=== PATIENT | female | born 1950 | race Caucasian/White ===

== ENCOUNTER → 2016-12-21 | Outpatient (CLI) | payer BC ==
[~2016-12-21] MED LIST: ASPI81TA28 PO; ATOR-24 PO; CALC600T9 PO; CLB/200 PO; MOME6000 NAE; MULT-506 PO; OMEG10007 PO; PANT40TA PO; RXC5 PO; TRAM-10 PO
== END | disposition home or self-care (01) ==
LOC: C.LABMFLN 15:53
PROVIDERS: ATTEND Family Medicine
DX: M54.9 Dorsalgia, unspecified (principal)

== ENCOUNTER → 2017-01-01 | Outpatient (CLI) | payer BC ==
--- NOTE | 2017-01-01 14:30 | DIAGNOSTIC IMAGING REPORT ---
MRI OF THE LUMBAR SPINE WITHOUT IV CONTRAST CLINICAL HISTORY: Low back pain with bilateral lower extremity numbness. Foot drop. COMPARISON STUDY: Radiographs of the lumbar spine dated 05/23/2016. TECHNIQUE: MRI of the lumbar spine is performed utilizing various T1 and T2-weighted sequences in the axial and sagittal planes. IV contrast was not administered for this examination. The examination is significantly degraded by open MRI technique. FINDINGS: Lumbar spine: Vertebral body height is maintained throughout the lumbar spine. There is 7 mm of anterolisthesis at L4-L5. Alignment is otherwise preserved. There is advanced chronic degenerative endplate change seen at L5-S1. Tiny anterior osteophytes are seen throughout. A large hemangioma is noted in the body of L2. Smaller hemangiomas are identified in the bodies of T12 and L3. Mild endplate edema is seen at T11-T12. The transverse and spinous processes are intact as visualized. There is no evidence of spondylolysis. Intervertebral discs: There is degenerative disc desiccation seen throughout the lumbar spine. Advanced loss of height is noted at L5-S1. Moderate loss of height is seen at L4-L5. Only mild loss of height is seen at the remaining lumbar levels. Spinal cord: The visualized spinal cord is normal in morphology and signal intensity. The conus medullaris terminates at the level of L2. The nerve roots of the cauda equina are normal in morphology. L1-L2: Unremarkable. L2-L3: There is a posterior disc bulge. There is only minimal acquired compromise of the central canal at this level. The minimum AP diameter measures 10 mm. There is minimal bilateral subarticular stenosis. Facet arthropathy is of no consequence. The neural foramina are patent. L3-L4: There is minimal posterior disc bulge. The central canal and neural foramina are patent. Facet arthropathy is of no consequence. L4-L5: There is a posterior disc herniation with annular fissure. A superiorly extruded fragment eccentric to the left is located posterior to the L4 vertebral body and measures up to 13 mm. In conjunction with anterolisthesis this causes moderate to severe acquired compromise of the central canal at this level with a minimum AP diameter of 5 mm. The disc herniation impinges on the transiting bilateral L5 and the exiting bilateral L4 nerve roots. Facet joint effusions are noted. Facet arthropathy causes minimal bilateral neural foraminal stenosis. L5-S1: There is a small posterior disc bulge with annular fissure. There is only minimal acquired compromise of the central canal at this level. The minimum AP diameter measures 8.5 mm. There is mild bilateral subarticular stenosis. There may be impingement of exiting bilateral L5 nerve roots. Sacrum: Visualized sacrum is normal in morphology and signal intensity. Soft tissues: There is mild fatty atrophy of the paraspinous musculature. There is cortical atrophy of the kidneys. Bilateral renal cysts are observed. A tiny cystic focus is seen just to the right of the L5 spinous process on axial image #26 and measures up to 9 mm. This is of doubtful significance. IMPRESSION: 1. There is a disc herniation at L4-L5 with a superiorly extruded fragment. There is moderate to severe central canal stenosis at this level. 2. Milder spondylotic change at additional levels. See discussion for detailed level by level analysis. 3. No destructive bony process is seen. 4. There is grade 1 anterolisthesis at L4-L5. 5. Degenerative disc disease with chronic endplate change as above. Dictated: 01/01/2017 1:37 PM Transcribed: 01/01/2017 2:29 PM [facility] Electronically signed by: Roberto Moreland M.D. 01/01/2017 2:35 PM Dictated Date/Time: 01/01/2017 1:37 PM
== END | disposition home or self-care (01) ==
LOC: C.OPENMRI 12:13
PROVIDERS: ATTEND Family Medicine
DX: M21.379 Foot drop, unspecified foot (principal); M54.5 Low back pain

== ENCOUNTER → 2017-02-14 | Outpatient (CLI) | payer BC, OTHER ==
[2017-02-14 13:41] LABS: URINE APPEARANCE CLEAR (CLEAR); URINE BILIRUBIN NEG (NEG); URINE COLOR YELLOW; URINE EPITHELIAL CELL AUTO 0-5 /lpf (0-5); URINE NITRITE NEG (NEG); URINE PH 5.5 (4.5-7.5); URINE SPECIFIC GRAVITY 1.014 (1.000-1.030); UROBILINOGEN NEG (NEG)
[2017-02-14 13:48] LABS: MANUAL MICROSCOPIC REQUIRED? NO; REVIEW REQ? NO
--- NOTE | 2017-02-20 11:06 | CODING QUERY MEDICAL NECESSITY ---
CQSUPPORTING DIAGNOSIS NEEDED A supporting diagnosis is required for the test/procedure performed on this patient in order for us to be reimbursed by the patient's insurance. Please provide a supporting diagnosis for the following test/procedure listed below next to the test name along with your signature. *If there is no additional diagnosis for this patient that would support the following test/procedure please document that below next to the test/procedure. Test(s)/Procedure(s) that require a supporting diagnosis: KYLE 02/14/17 URINE CULTURE TEST Provider Signature: Date: Thank you Mandy Gonzalez Health Information Management Once completed, please kindly fax back to [phone] For questions please call [phone]
== END | disposition home or self-care (01) ==
LOC: C.LABMFLN 07:30
PROVIDERS: ATTEND Orthopaedic Surgery Orthopaedic Surgery of the Spine
DX: Z01.812 Encounter for preprocedural laboratory examination (principal)

== ENCOUNTER 2017-02-26 10:27 | Inpatient (IN) | payer BC, OTHER ==
[2017-02-07 11:50] VITALS: BMI 27.0
--- NOTE | 2017-02-07 12:18 | PAT Medication Instructions ---
Service Date Feb 07, 2017. Current Home Medication List Aspirin (Aspirin Ec), 81 MG PO QAM Atorvastatin (Lipitor), 40 MG PO QPM Calcium Carbonate-Vitamin D (Calcium + D), 1 TAB PO QAM Celecoxib (CeleBREX), 200 MG PO QAM Fish Oil ([place]-3), 3 CAP PO QAM Mometasone Furoate (Nasal) (Mometasone Furoate), 2 SPRAYS MAX Multivitamin (Multivitamin), 1 TAB PO QAM Pantoprazole (Protonix), 40 MG PO QAM Tramadol (Ultram), 50 MG PO QID PRN for consumer recruiter Instructions For Your Scheduled Surgery - Hold the following medications 1 week prior to surgery per surgeon's instructions: Fish Oil ([place]-3), 3 CAP PO QAM Celecoxib (CeleBREX), 200 MG PO QAM Aspirin (Aspirin Ec), 81 MG PO QAM - Hold the following medications the morning of surgery: Multivitamin (Multivitamin), 1 TAB PO QAM Calcium Carbonate-Vitamin D (Calcium + D), 1 TAB PO QAM - Take the following medications the morning of surgery with a sip of water OTHERWISE NOTHING TO EAT OR DRINK AFTER MIDNIGHT: Pantoprazole (Protonix), 40 MG PO QAM Mometasone Furoate (Nasal) (Mometasone Furoate), 2 SPRAYS MAX Tramadol (Ultram), 50 MG PO QID PRN (may take if needed up to 4 hours prior to surgery) - Take the following medications as scheduled the night before surgery: Atorvastatin (Lipitor), 40 MG PO QPM Tramadol (Ultram), 50 MG PO QID PRN If you have any questions please call us at [phone] or [phone] or [phone]
--- NOTE | 2017-02-07 13:03 | DIAGNOSTIC IMAGING REPORT ---
TWO VIEW CHEST CLINICAL HISTORY: Preoperative examination. FINDINGS: PA and lateral chest radiographs obtained. No prior studies are available for comparison at the time of dictation. The cardiomediastinal silhouette is unremarkable. There is atherosclerotic calcification of the thoracic aorta. The lungs and pleural spaces are clear. There is no pneumothorax. The skeletal structures are osteopenic. The bony thorax appears intact. IMPRESSION: No active disease in the chest. Electronically signed by: Roberto Moreland M.D. 02/07/2017 1:01 PM Dictated Date/Time: 02/07/2017 1:01 PM
[2017-02-07 13:24] LABS: BASO % 0.2 %; BASO ABS # 0.01 K/uL (0-0.2); COMPLETE YES; EOS % 9.5 %; HEMATOCRIT 38.8 % (37-47); IG% 0.2 %; LYMPH % 36.2 %; LYMPH ABS # 2.24 K/uL (1.2-3.4); MEAN CELL VOLUME 98.2 fL (80-100); MEAN CORPUSCULAR HEMOGLOBIN 32.9 pg (25-34); MEAN CORPUSCULAR HGB CONC 33.5 g/dl (32-36); MEAN PLATELET VOLUME 10.6 fL (7.4-10.4); MONO % 7.9 %; PLATELET COUNT 220 K/uL (130-400); RED BLOOD COUNT 3.95 M/uL (4.2-5.4); WHITE BLOOD COUNT 6.18 K/uL (4.8-10.8)
[2017-02-07 13:29] LABS: BUN/CREATININE RATIO 16.8 (10-20); CALCIUM 10.4 mg/dl (8.5-10.1); CREATININE 0.97 mg/dl (0.60-1.20); POTASSIUM 4.1 mmol/L (3.5-5.1)
[2017-02-26] VITALS (7 sets, daily range): BP systolic 103–115; BP diastolic 60–70; PULSE 55–72; TEMP 36.3–36.9; O2SAT 96–100; Ht 162.6 cm; Wt 73.3 kg
[~2017-02-26] VITALS: Ht 162.6 cm; Wt 73.3 kg
[~2017-02-26 10:27] MED LIST changes: +ATROPINE SULFATE 0.1 MG/ML 5ML SYR IV PRN; +CEFAZOLIN 1000MG/55 ML D5W IV SCH; +EpHEDrine SULFATE INJ 50 MG/ML AMP IV PRN; +FENTANYL CITRATE INJ 50 MCG/1 ML 2 ML VIAL IV PRN; +HYDROmorphone INJ 1 MG/ML SYR IV PRN; +LACTATED RINGER'S 1000ML 1,000 ML IV SCH; +ONDANSETRON INJ 2 MG/ML 2 ML VIAL IV PRN; -RXC5 PO
--- NOTE | 2017-02-26 11:11 | History & Physical Bridge Note ---
H&P Re-Evaluation Bridge Note: I have examined the patient, reviewed the History & Physical and in the interval since the performance of the History & Physical I have noted the following changes of clinical significance: No changes noted
--- NOTE | 2017-02-26 11:12 | History and Physical ---
History & Physical Date Feb 26, 2017. Chief Complaint Back and leg pain History of Present Illness The patient is a 66 year old female with complaints of back and leg pain Additional History Hepatic Disease: No Endocrine Disorder: No Kidney Disease: No Hypertension: No Heart Disease: No Bleeding Tendencies: No Infectious Diseases: No Allergies Coded Allergies: No Known Allergies (Unverified , 02/26/17) Home Medications Scheduled Aspirin (Aspirin Ec), 81 MG PO QAM Atorvastatin (Lipitor), 40 MG PO QPM Calcium Carbonate-Vitamin D (Calcium + D), 1 TAB PO QAM Celecoxib (CeleBREX), 200 MG PO QAM Fish Oil (Balm-3), 3 CAP PO QAM Multivitamin (Multivitamin), 1 TAB PO QAM Pantoprazole (Protonix), 40 MG PO QAM Scheduled PRN Tramadol (Ultram), 50 MG PO QID PRN for RN Miscellaneous Medications Mometasone Furoate (Nasal) (Mometasone Furoate), 2 SPRAYS MAX Physical Examination Skin: warm/dry, no rash Eyes: normal inspection, EOMI, sclerae normal ENT: normal ENT inspection, pharynx normal Head: normocephalic, atraumatic Neck: supple, no adenopathy, trachea midline Respiratory/Chest: lungs clear, normal breath sounds, no respiratory distress Cardiovascular: regular rate, rhythm, no edema, no murmur Abdomen / GI: normal bowel sounds, non tender Back: normal inspection Extremities: normal inspection, normal range of motion Neurologic/Psych: no motor/sensory deficits, alert, normal reflexes, oriented x 3 Diagnosis Lumbar spinal stenosis Plan of Treatment Lumbar decompression fusion L4 5 L5-S1
[2017-02-26] MEDS ORDERED: MIDAZOLAM HCL 1 MG/ML 2ML VIAL ONE (11:24)
[2017-02-26] MEDS ORDERED: FENTANYL CITRATE INJ 50 MCG/1 ML 2 ML VIAL ONE ×3 (11:24→13:39)
[2017-02-26] MEDS ORDERED: BUPIVACAINE/EPINEPHRINE 0.5% MPF 1:200,000 10 ML VIAL ONE (11:46)
[2017-02-26] MEDS ORDERED: SODIUM CHLORIDE 0.9% PF 50 ML VIAL ONE (11:47)
[2017-02-26] MEDS ORDERED: BACITRACIN 50000 UNIT VIAL ONE (11:47)
[2017-02-26] MEDS ORDERED: HYDROmorphone INJ 2 MG/ML SYR/VIAL ONE ×2 (12:34→14:13)
[2017-02-26] MEDS ORDERED: LIDOCAINE HCL 2% 2 ML VIAL (20MG/ML) ONE (12:36)
[2017-02-26] MEDS ORDERED: ONDANSETRON INJ 2 MG/ML 2 ML VIAL ONE ×2 (12:36→14:17)
[2017-02-26] MEDS ORDERED: PROPOFOL IV EMULSION 10 MG/ML 20 ML VIAL IV ONE (12:36)
[2017-02-26] MEDS ORDERED: DEXAMETHASONE SOD INJ 4 MG/ML VIAL ONE (12:36)
[2017-02-26] MEDS ORDERED: ROCURONIUM BROMIDE 10 MG/ML 5 ML VIAL IV ONE (12:36)
[2017-02-26] MEDS ORDERED: EpHEDrine SULFATE 50MG/5ML SYR ONE (14:17)
[2017-02-26] MEDS ORDERED: NEOSTIGMINE METHYLSULFATE 1 MG/ML 10ML VIAL ONE (14:17)
[2017-02-26] MEDS ORDERED: GLYCOPYRROLATE INJ 0.2 MG/ML VIAL ONE (14:17)
[2017-02-26] MEDS ORDERED: KETOROLAC TROMETHAMINE 30 MG/ML VIAL ONE (14:19)
[2017-02-26] MEDS ORDERED: FLOSEAL HEMOSTATIC MATRIX 10ML TOP ONE (14:27)
[2017-02-26] MEDS ORDERED: SODIUM CHLORIDE 0.9% 1000ML 1,000 ML IV SCH (14:32)
--- NOTE | 2017-02-26 14:40 | [facility] Operative Report ---
Operative Report Operative Date Feb 26, 2017. Pre-Operative Diagnosis Lumbar Spinal Stenosis Post-Operative Diagnosis Lumbar Spinal Stenosis Procedure(s) Performed #1 lumbar decompression medial facetectomies foraminotomies L3 4 L4 5 L5-S1. #2 posterior spinal fusion L4 5 L5-S1. #3 placement of posterior segmental instrumentation L4 5 L5-S1. #4 interbody fusion L4 5. #5 placement peek cage 12 x 22 mm at L4 5. 6 placement of locally harvested morcellized autograft posterior gutters. #7 placement infuse collagen sponge by mask graft the posterior gutters Clara bone graft in the interbody space. Surgeon Dr Bill Chaudhari Soiled Linen Distributor Surgeon(s) Sharon Otto Estimated Blood Loss 375ml Findings Spinal stenosis with herniated nucleus pulposus L4 5 Specimens None as per Surgeon Description of Procedure Patient was met with preoperatively case discussed all questions are dressed. After informed consent patient was taken back to the operative suite and after intubation placed in a prone position on the [place] table top Krishna frame. At this time the lumbar spines prepped and draped in the normal sterile fashion. Sharp dissection with the assistance of Bovie cautery was performed onto an exposing the lamina and transverse processes of L4-L5 sacral alar bilaterally. Obvious spondylolisthesis appreciated. From a caudal to cephalad fashion a complete laminectomy of L5 L4 partial laminectomy of L3 was performed addressing severe lateral recess and foraminal disease. I also performed discectomy addressing the free fragment at L4 5 that had migrated cephalad. This complete pedicle screws were placed in L4-L5 and S1 levels bilaterally with the assistance of fluoroscopy in the properly sized wing placed. Through a transforaminal port and left complete discectomy of L4 5 was performed and plate created subcortical bleeding bone and a 12 x 22 mm peek cage filled with Clara bone grafting tapped in position. The rods were then locked and final position bilaterally. The transverse processes of L4-L5 and the sacral alar burred to subcortical bleeding bone. Infuse collagen sponge mask graft locally harvested morcellized autograft placed in the posterior lateral gutters. 15 round JONATHAN drain inserted. Incision then closed with 1 Vicryl in the fascia 2-0 Vicryl subcutaneously and 4-0 Monocryl for final skin closure. Sterile dressings. Steri-Strips placed. Patient awakened taken to PACU stable condition. Please note Sharon Espinoza present throughout the entire procedure involved in patient positioning complex portions of the procedure and final skin closure. I attest to the content of the Intraoperative Record and any orders documented therein. Any exceptions are noted below.
--- NOTE | 2017-02-26 14:42 | DIAGNOSTIC IMAGING REPORT ---
Radiology LUMBAR SPINE 2 OR 3 VIEW CLINICAL HISTORY: 66 years-old Female presenting with L4-S1 DECOMPRESSION/FUSION. TECHNIQUE: 2 fluoroscopic spot image(s) obtained as part of an intraoperative procedure. COMPARISON: 05/23/2016. FINDINGS/IMPRESSION: Interval bilateral transpedicular screw and wing fixation of L4-S1 with interbody spacer at L4-5. Anatomic alignment grossly maintained. Please see surgical report for further details. Fluoroscopy dosage (mGy): Not available. Fluoroscopy time: 24 seconds. Number of fluoroscopic spot images: 2. Electronically signed by: Alexys Hurst M.D. 02/26/2017 2:40 PM Dictated Date/Time: 02/26/2017 2:39 PM
[2017-02-26] MEDS ORDERED: TRAMADOL HCL 50 MG TAB PO PRN (14:45)
[2017-02-26] MEDS ORDERED: MAGNESIUM HYDROXIDE SUSP 30 ML UDC PO PRN (14:45)
[2017-02-26] MEDS ORDERED: SOD PHOSPHATE/SOD BIPHOSPHATE ENEMA 132 ML BTL PR PRN (14:45)
[2017-02-26] MEDS ORDERED: DO NOT ADMINISTER FLU VACCINE PRN ×3 (14:45)
[2017-02-26] MEDS ORDERED: LORAZEPAM 0.5 MG TAB PO PRN (14:45)
[2017-02-26] MEDS ORDERED: METOCLOPRAMIDE HCL INJ 5 MG/ML 2 ML VIAL IV PRN (14:45)
[2017-02-26] MEDS ORDERED: hydrOXYzine HCL 25 MG TAB PO PRN (14:45)
[2017-02-26] MEDS ORDERED: BISACODYL 10 MG SUPP PR PRN (14:45)
[2017-02-26] MEDS ORDERED: ACETAMINOPHEN IV 100 ML IV PRN (14:45)
[2017-02-26] MEDS ORDERED: FAMOTIDINE 20 MG TAB PO PRN (14:45)
[2017-02-26] MEDS ORDERED: LORAZEPAM INJ 0.5 MG in SYRINGE 0 ML IV PRN (14:45)
[2017-02-26] MEDS ORDERED: ONDANSETRON INJ 2 MG/ML 2 ML VIAL IV PRN (14:45)
[2017-02-26] MEDS ORDERED: NALOXONE HCL 0.4 MG/1 ML VIAL/CARP IV PRN ×2 (14:45)
[2017-02-26] MEDS ORDERED: ACETAMINOPHEN 500 MG TAB PO PRN (14:45)
[2017-02-26] MEDS ORDERED: DO NOT ADMINISTER PNEUMOCOCCAL VACCINE PRN ×2 (14:45)
[2017-02-26] MEDS ORDERED: PROMETHAZINE HCL INJ 12.5 MG in SODIUM CHLORIDE 0.9% 50ML 50 ML IV PRN (14:45)
[2017-02-26] MEDS ORDERED: ALUMINUM/MAGNESIUM SUSP 30 ML UDC PO PRN (14:45)
[2017-02-26] MEDS: HYDROmorphone HCL 0.5MG/ML 50 ML CASSETTE IV PRN ×3 (15:02→23:13)
[2017-02-26] MEDS ORDERED: HYDROmorphone INJ 1 MG/ML SYR IV PRN (15:15)
--- NOTE | 2017-02-26 16:01 | Anesthesiology Progress Note ---
Anesthesia Post Op Note Date & Time Feb 26, 2017 at 16:00 Vital Signs Pain Intensity: 0 Vital Signs Past 12 Hours Date Time Temp Pulse Resp B/P (MAP) Pulse Ox O2 Delivery O2 Flow Rate FiO2 02/26/17 15:45 50 12 112/69 100 Nasal Cannula 4 02/26/17 15:35 36.2 51 12 121/55 100 Nasal Cannula 4 02/26/17 15:25 58 12 115/63 100 Nasal Cannula 4 02/26/17 15:15 62 12 118/64 100 Nasal Cannula 4 02/26/17 15:05 60 12 118/65 100 Oxymask 10 02/26/17 14:55 68 12 120/62 100 Oxymask 10 02/26/17 14:48 36.3 80 12 118/62 100 Oxymask 10 02/26/17 10:45 36.9 62 20 109/70 96 Room Air Notes Mental Status: alert / awake / arousable, participated in evaluation Pt Amnestic to Procedure: Yes Nausea / Vomiting: adequately controlled Pain: adequately controlled Airway Patency, RR, SpO2: stable & adequate BP & HR: stable & adequate Hydration State: stable & adequate Anesthetic Complications: no major complications apparent
[2017-02-26] MEDS: SODIUM CHLORIDE 0.9% 1000ML 1,000 ML IV SCH ×2 (16:55→20:17)
[2017-02-26] MEDS: CEFAZOLIN IV 2,000 MG in DEXTROSE 5% 50ML 50 ML IV SCH (20:17)
[2017-02-26] MEDS: DOCUSATE SODIUM/SENNA 50/8.6MG TAB PO SCH (20:18)
[2017-02-26] MEDS: DEXAMETHASONE INJ 6 MG in SYRINGE 0 ML IV SCH (20:18)
[2017-02-26] MEDS: ATORVASTATIN 40 MG TAB PO SCH (20:18)
[2017-02-27 03:25] VITALS: BP 100/57; PULSE 77; TEMP 36.8; O2SAT 96
[2017-02-27] MEDS: SODIUM CHLORIDE 0.9% 1000ML 1,000 ML IV SCH (03:37)
[2017-02-27] MEDS: CEFAZOLIN IV 2,000 MG in DEXTROSE 5% 50ML 50 ML IV SCH (03:59)
[2017-02-27] MEDS: DEXAMETHASONE INJ 6 MG in SYRINGE 0 ML IV SCH ×2 (03:59→12:15)
[2017-02-27 05:51] LABS: COMPLETE YES; HEMATOCRIT 30.4 % (37-47); IG% 0.2 %; LYMPH % 5.6 %; LYMPH ABS # 0.72 K/uL (1.2-3.4); MEAN CELL VOLUME 96.8 fL (80-100); MEAN CORPUSCULAR HEMOGLOBIN 32.8 pg (25-34); MEAN CORPUSCULAR HGB CONC 33.9 g/dl (32-36); MEAN PLATELET VOLUME 10.2 fL (7.4-10.4); MONO % 4.7 %; NEUT % 89.5 %; PLATELET COUNT 202 K/uL (130-400); RED BLOOD COUNT 3.14 M/uL (4.2-5.4); WHITE BLOOD COUNT 12.82 K/uL (4.8-10.8)
[2017-02-27] MEDS ORDERED: HYDROmorphone INJ 0.5 MG/0.5 ML SYR IV PRN (06:00)
[2017-02-27] MEDS ORDERED: HYDROmorphone INJ 1 MG/ML SYR IV PRN (06:00)
[2017-02-27] MEDS ORDERED: DC PCA ONE (06:00)
[2017-02-27] MEDS ORDERED: OXYCODONE HCL IR 5 MG TAB (IMMEDIATE RELEASE) PO PRN (06:00)
[2017-02-27] MEDS ORDERED: NURSING DECISION MEDICATION ORDER SCH (06:30)
[2017-02-27 06:38] LABS: BUN/CREATININE RATIO 14.6 (10-20); CALCIUM 8.2 mg/dl (8.5-10.1); CREATININE 0.67 mg/dl (0.60-1.20)
[2017-02-27 07:12] VITALS: BP 113/68; PULSE 73; TEMP 36.7; O2SAT 97
[2017-02-27] MEDS: ASPIRIN 81 MG ECTAB PO SCH (09:05)
[2017-02-27] MEDS: PANTOprazole SOD 40 MG TAB PO SCH (09:05)
[2017-02-27] MEDS ORDERED: NURSING VERBAL MED ORDER ONE (09:15)
[2017-02-27] MEDS ORDERED: COUGH DROP (SUGAR FREE) LOZ 24 LOZ/1 BOX PO PRN (10:15)
--- NOTE | 2017-02-27 10:19 | Clinical Documentation Query ---
Dr. HAILE EVELYN: CLINICAL DOCUMENTATION QUERY H&P states no past medical history. However, home medication list includes: Aspirin (Aspirin Ec), 81 MG PO QAM Atorvastatin (Lipitor), 40 MG PO QPM Calcium Carbonate-Vitamin D (Calcium + D), 1 TAB PO QAM Celecoxib (CeleBREX), 200 MG PO QAM Fish Oil ([place]-3), 3 CAP PO QAM Multivitamin (Multivitamin), 1 TAB PO QAM Pantoprazole (Protonix), 40 MG PO QAM As appropriate, consider capturing these clinical diagnoses as this imparts severity of illness and associated risk of mortality in the medical record. Thank you. In your clinical opinion is this patient being managed for: ( ) Age-related osteoporosis, osteoarthritis, hypercholesterolemia, GERD ( ) Other explanation of clinical findings (Please Explain) ( ) Unable to determine (Please Define) ( ) Need to Discuss ( ) Not Agree The medical record reflects the following clinical findings, treatment, and risk factors. Clinical Indicators: As above Treatment: As above Risk Factors: Age, gender Please clarify and document your clinical opinion in the progress notes and discharge summary. Terms such as "probable", "suspected", "likely", "questionable", "possible", or "still to be ruled out" are acceptable. IF IN AGREEMENT, YOU MUST DOCUMENT ABOVE DIAGNOSTIC STATEMENT IN DAILY PROGRESS NOTES AND DISCHARGE SUMMARY. This document is not part of the patient's record. Thank You, Mike Bee, RN [phone]
[2017-02-27] MEDS ORDERED: RXC5 PO (10:26)
--- NOTE | 2017-02-27 10:27 | Discharge Instructions ---
Discharge Instructions Date of Service Feb 27, 2017. Admission Reason for Admission: Lumbar Spinal Stenosis Discharge Discharge Diagnosis / Problem: lumbar stenosis Discharge Goals Goal(s): Improve function Activity Recommendations Activity Limitations: per Instructions/Follow-up section . Instructions / Follow-Up Instructions / Follow-Up ACTIVITY RECOMMENDATIONS: SELF CARE INSTRUCTIONS AFTER THORACIC/LUMBAR FUSIONS 1. You may walk to your tolerance. It is good exercise for your legs and back. Expect some back and intermittent leg aches and pains. 2. You may perform "counter-top" level activities (make a sandwich, yaron with a project, etc.). 3. No bending or lifting of more than 10 pounds or back twisting of any nature (roll like a log when turning in bed). 4. You may ride in a car for 20-30 minutes at a time. No driving until after your first visit with your doctor. 5. Frequent changes of position and restricting sitting to 30 minutes at a time will help limit the amount of back spasms and stiffness you may experience. 6. You may discontinue the use of ambulatory aids (cane, crutches, etc.) once your strength and confidence allow. 7. You may pickling drum operator the shower and let water strike your incision when you arrive home at least once daily. Do not take a tub bath, sit in a hot tub or go into a swimming pool until after your first recheck in the office. SPECIAL CARE INSTRUCTIONS: VERY IMPORTANT TO READ AND REVIEW A. Your surgical incision has been closed with a cosmetic suture under the skin that will dissolve in about 6 weeks. In 14 days, you can use a pair of clean scissors and cut the suture that is left outside of the skin at the ends of your incision. 1. The small skin tapes can be removed 7 days after surgery if they have not fallen off by that point. 2. You may keep the wound open to air as much as possible to promote healing after post-op day number 5 unless told otherwise by your doctor. 3. If you think the wound looks like it is becoming infected (redness or worsening drainage) and/or you are experiencing fever, chill or worsening back pain and muscle spasms, contact the office so that we may evaluate you as soon as possible. B. Complications are uncommon, but please contact us if you have any signs or symptoms of: 1. wound infection (fever higher than 102.5 degrees F, redness, separation of wound, drainage, or increasing pain from the incision) 2. blood clots in legs (pain, swelling, redness and warmth in legs) 3. urinary tract infection (fever higher than 102.5 degrees F, burning upon urination or increased frequency of urination) 4. nerve problems (inability to walk on your toes or heels, numbness, loss of bowel or bladder control) 5. any other symptoms that concern you C. Please call the office at if you have any concerns or questions about your operation or recovery. D. No smoking! Smoking drastically decreases the chance of a solid fusion. E. Do not take any anti-inflammatory medications (Indocin, Advil, Motrin, Aspirin, Naprosyn, etc.) as these may inhibit the chance of a solid fusion. Tylenol is okay to take for pain. MANAGING PAIN AFTER SPINAL SURGERY 1. Narcotic medication is intended for short-term use and will be provided for surgical pain. Surgical pain usually lasts for a period of 4-6 weeks. Narcotic medication includes Percocet, Vicodin, Darvocet, Tylenol #3 or Lortab. 2. Longer-term pain is more appropriately treated with non-narcotic medication such as Tylenol ES. 3. Muscle spasm is not appropriately treated with narcotics. Muscle relaxers such as Soma, Flexeril or Skelaxin can be used along with Tylenol ES. 4. Remember that we all live with some "aches and pains". This is not unusual or uncommon after an injury or as we get older. a. Back pain is expected and may include muscle spasms for 4 to 6 weeks after surgery. The pain should gradually improve. If the pain worsens for no apparent reason, please contact the office. b. Intermittent leg pain may also be experienced and should not be concerned about unless it worsens for no apparent reason. If so, please contact the office. 5. We will provide appropriate medication within the normal guidelines of their prescribed use. We will also be very cautious and aware of potential abuse and extended duration of patients' medication needs. a. Pain medications are for your comfort and to assist with sleep and rest so that the tissue can heal. They are not provided in order to return to normal activity and should not be used through the day. To do so or worsening pain at night can result from ongoing tissue damage and development of tolerance to the prescribed medicine. 6. Please allow 2-3 days to process refills. Prescriptions will not be mailed but must be picked up at the office. FOLLOW UP VISIT: Keep your scheduled follow-up appointment. Any questions, please call the office at . Current Hospital Diet Patient's current hospital diet: Regular Diet Discharge Diet Recommended Diet: Regular Diet Procedures Procedures Performed: #1 lumbar decompression medial facetectomies foraminotomies L3 4 L4 5 L5-S1. #2 posterior spinal fusion L4 5 L5-S1. #3 placement of posterior segmental instrumentation L4 5 L5-S1. #4 interbody fusion L4 5. #5 placement peek cage 12 x 22 mm at L4 5. 6 placement of locally harvested morcellized autograft posterior gutters. #7 placement infuse collagen sponge by mask graft the posterior gutters Clara bone graft in the interbody space. Pending Studies Studies pending at discharge: no Medical Emergencies . Who to Call and When: Medical Emergencies: If at any time you feel your situation is an emergency, please call 911 immediately. . Non-Emergent Contact Non-Emergency issues call your: Primary Care Provider . "Provider Documentation" section prepared by Toby Chaudhari. . VTE Core Measure Inpt VTE Proph given/why not?: Wale Lobo, SCD's
[2017-02-27 12:09] VITALS: BP 106/61; PULSE 66; TEMP 36.5; O2SAT 98
--- NOTE | 2017-02-27 13:19 | Progress Note ---
Progress Note Date of Service Feb 27, 2017. Progress Note Patient's postop day #1. Back pain is controlled. Leg pain markedly improved. Vital signs are stable JONATHAN drain decreasing appropriate. On exam she is in chair at bedside as good strength testing appears comfortable. Assessment status post lumbar depression fusion per plan this time initiate physical therapy advance her bowel regimen anticipate home possibly tomorrow.
[2017-02-27 15:45] VITALS: BP 116/71; PULSE 73; TEMP 36.6; O2SAT 98
[2017-02-27] MEDS: DOCUSATE SODIUM/SENNA 50/8.6MG TAB PO SCH (22:20)
[2017-02-27] MEDS: ATORVASTATIN 40 MG TAB PO SCH (22:20)
[2017-02-27 23:26] VITALS: BP 115/71; PULSE 74; TEMP 36.5; O2SAT 98
[2017-02-28] MEDS ORDERED: POLYETHYLENE (MIRALAX) 17 GM PACK PO SCH (06:00)
[2017-02-28 06:10] VITALS: BP 122/74; PULSE 77; TEMP 36.4; O2SAT 98
[2017-02-28] MEDS: ASPIRIN 81 MG ECTAB PO SCH (07:22)
[2017-02-28] MEDS: PANTOprazole SOD 40 MG TAB PO SCH (07:22)
[2017-02-28] MEDS ORDERED: NURSING VERBAL MED ORDER ONE (08:15)
[2017-02-28 10:57] VITALS: BP 122/74; PULSE 77; TEMP 36.4; O2SAT 98
--- NOTE | 2017-02-28 12:45 | Discharge Summary ---
Orthopedic Discharge Summary Admission Date/Reason Feb 26, 2017 at 11:00 Lumbar Spinal Stenosis. Discharge Date/Disposition Feb 28, 2017 Home Diagnosis Principal Diagnosis: Lumbar spinal stenosis Admission Physical Exam As per Admitting History & Physical. Hospital Course Patient underwent lumbar decompression fusion tolerated this well as taken to the orthopedic floor postoperatively. Postoperative day #1 she was up in amatory progressed nicely few postop day #2 and subsequently discharged home. Discharge orders and instructions found on the chart for further review. Discharge Instructions Please refer to the electronic Patient Visit Report (Discharge Instructions) for additional information.
== END 2017-02-28 14:52 | disposition home or self-care (01) | DRG 460 ==
LOC: C.ACU 10:27 → C.3E 11:00 → ENRESERV 15:19
PROVIDERS: ADMIT Orthopaedic Surgery Orthopaedic Surgery of the Spine; ATTEND Orthopaedic Surgery Orthopaedic Surgery of the Spine
PROC: 0SG00AJ Fusion of Lumbar Vertebral Joint with Interbody Fusion Device, Posterior Approach, Anterior Column, Open Approach (ICD-10-PCS; principal; 2017-02-26 12:15)
PROC: 0SG0071 Fusion of Lumbar Vertebral Joint with Autologous Tissue Substitute, Posterior Approach, Posterior Column, Open Approach (ICD-10-PCS; principal; 2017-02-26 12:15)
PROC: 0SG3071 Fusion of Lumbosacral Joint with Autologous Tissue Substitute, Posterior Approach, Posterior Column, Open Approach (ICD-10-PCS; principal; 2017-02-26 12:15)
PROC: 3E0U0GB Introduction of Recombinant Bone Morphogenetic Protein into Joints, Open Approach (ICD-10-PCS; principal; 2017-02-26 12:15)
PROC: 0ST20ZZ Resection of Lumbar Vertebral Disc, Open Approach (ICD-10-PCS; principal; 2017-02-26 12:15)
DX: M48.06 Spinal stenosis, lumbar region (principal); E78.5 Hyperlipidemia, unspecified; K21.9 Gastro-esophageal reflux disease without esophagitis; M19.90 Unspecified osteoarthritis, unspecified site; M21.372 Foot drop, left foot; Z87.891 Personal history of nicotine dependence; Z79.1 Long term (current) use of non-steroidal anti-inflammatories (NSAID); Z79.891 Long term (current) use of opiate analgesic; Z79.899 Other long term (current) drug therapy

== ENCOUNTER → 2017-03-30 | Outpatient (CLI) | payer BC ==
[~2017-03-30] MED LIST changes: -ATROPINE SULFATE 0.1 MG/ML 5ML SYR IV PRN; -CEFAZOLIN 1000MG/55 ML D5W IV SCH; -CLB/200 PO; -EpHEDrine SULFATE INJ 50 MG/ML AMP IV PRN; -FENTANYL CITRATE INJ 50 MCG/1 ML 2 ML VIAL IV PRN; -HYDROmorphone INJ 1 MG/ML SYR IV PRN; -LACTATED RINGER'S 1000ML 1,000 ML IV SCH; -ONDANSETRON INJ 2 MG/ML 2 ML VIAL IV PRN; +RXC5 PO
[2017-04-11 11:28] LABS: HPV 16 RNA NOT DETECTED (NOT DETECTED); HPV 18 45 RNA NOT DETECTED (NOT DETECTED)
== END | disposition home or self-care (01) ==
LOC: C.PAPS 08:16
PROVIDERS: ATTEND Family Medicine
DX: R87.810 Cervical high risk human papillomavirus (HPV) DNA test positive (principal)

== ENCOUNTER → 2017-09-13 | Outpatient (CLI) | payer BC | END | disposition home or self-care (01) | LOC: C.LABMFLN 08:02 | PROVIDERS: ATTEND Family Medicine | DX: E78.00 Pure hypercholesterolemia, unspecified (principal) ==

== ENCOUNTER → 2017-10-31 | Outpatient (CLI) | payer BC | END | disposition home or self-care (01) | LOC: C.PATHSPEC 13:54 | PROVIDERS: ATTEND Obstetrics & Gynecology | DX: R87.810 Cervical high risk human papillomavirus (HPV) DNA test positive (principal); N87.1 Moderate cervical dysplasia; N87.0 Mild cervical dysplasia ==

== ENCOUNTER → 2017-11-12 | Outpatient (CLI) | payer BC | END | disposition home or self-care (01) | LOC: C.PATHSPEC 17:41 | PROVIDERS: ATTEND Obstetrics & Gynecology | DX: R87.612 Low grade squamous intraepithelial lesion on cytologic smear of cervix (LGSIL) (principal) ==